=== PATIENT | female | born 1960 | race Caucasian/White ===

== ENCOUNTER 2025-01-31 23:56 | Emergency (ER) | payer OTHER, SELFPAY ==
[~2025-01-31] VITALS: Ht 162.6 cm; Wt 91.0 kg
--- NOTE | 2025-02-01 00:15 | ECG ---
[facility] Test Date: 2025-02-01 Test Time: 00:02:03 Pat Name: NANCY ALVAREZ Department: ED Room: Gender: F Diabetologist: trina : 1960 Requested By: EMERGENCY EMERGENCY Order Number: [id number] Reading MD: Zohaib Ventura Measurements Intervals [place] Rate: 90 P: 53 [place]: 161 QRS: 37 QRSD: 106 T: -23 QT: 372 QTc: 455 Interpretive Statements Sinus rhythm Probable left atrial enlargement Borderline T abnormalities, inferior leads Electronically Signed On 02-01-2025 18:25:48 PDT by Zohaib Ventura Please click the below link to view image of tracing.
--- NOTE | 2025-02-01 04:11 | DVH ---
CLINICAL INDICATION: pain TECHNIQUE: XY R SHOULDER 2+ VIEW XRAY Comparison: None FINDINGS/IMPRESSION: : There is no evidence of acute fracture or dislocation. Mild glenohumeral joint space narrowing and marginal osteophytosis and mild to moderate hypertrophic acromioclavicular arthropathy. Calcific density superior laterally adjacent to the humeral head consistent with sequelae of calcific tendinopathy. Soft tissues are unremarkable.
[2025-02-01] MEDS ORDERED: METH-1181 PO (05:06)
[2025-02-01] MEDS ORDERED: METH4PAK PO (05:06)
--- NOTE | 2025-02-01 05:06 | ED.PDOC ---
Back pain HPI HPI Comments PT PRESENTS TO ED FOR CC OF R SHOULDER PAIN X 3 WEEKS. PT REPORTS TENDERNESS TO R ANTERIOR SHOULDER AND RIGHT UPPER CHEST WALL. Denies difficulty breathing, shortness of breath, dizziness, substernal chest pain, nausea, vomiting, numbness or weakness. Chief Complaint: Upper Extremity Time Seen by MD: 00:28 Reviewed Notes: Nurses Notes, Medications, Allergies Allergies: Coded Allergies: NO KNOWN ALLERGIES (Unverified , 02/01/25) Home Meds Active Scripts Methocarbamol (Methocarbamol) 500 Mg Tab, 500 MG PO BID PRN for 5 Days, #10 TAB Prov:ROSA JORGENSEN SITE RELIABILITY ENGINEER 02/01/25 Methylprednisolone (Medrol Dosepak) 4 Mg Les, 4 MG PO UD for 6 Days, #21 TAB UAD Prov:ROSA JORGENSEN SITE RELIABILITY ENGINEER 02/01/25 Information Source: Patient Mode of Arrival: EMS Past Medical History PAST MEDICAL HISTORY: Denies Surgical History: Denies all surgeries LEAD RIDER History: No Pertinent LEAD RIDER History Family History Family History: Reviewed,noncontributory to illness Social History Smoker: Non-Smoker Alcohol: Denies ETOH Use Drugs: Denies Drug Use All Other Systems: Reviewed and Negative (see hpi) Physical Exam General Appearance: No Apparent Distress, Normal HEENT: Pharynx Normal Neck: Full Range of Motion, Non-Tender Respiratory: Chest Non-Tender, Lungs Clear, No Respiratory Distress, Normal Breath Sounds Cardiovascular: No Edema, No JVD, No Murmur, No Gallop, Normal Peripheral Pulses, Regular Rate/Rhythm Breast Exam: Deferred Gastrointestinal: No Organomegaly, Non Tender, No Pulsatile Mass, Normal Bowel Sounds, Soft Genitalia: Deferred Pelvic: Deferred Rectal: Deferred Extremities: Normal range of motion, No pedal edema Musculoskeletal : Location: Right Extremity Location: Shoulder (Moderate tenderness palpated over anterior shoulder. Strength sensory motion intact positive radial pulse) Apperance: Normal Neurologic: Alert, No Motor Deficits, Normal Affect, Normal Mood, No Sensory Deficits Cerebellar Function: Normal Reflexes: Normal Skin: Dry, Normal Color, Warm Lymphatic: No Adenopathy Was a procedure done? Was a procedure done?: No Back Pain Differential Dx Differential Diagnosis: Fracture, Musculoskeletal Pain, Strain X-Ray, Labs, Meds, VS Vital Signs Date Time Temp Pulse Resp B/P (MAP) Pulse Ox O2 Delivery O2 Flow Rate FiO2 02/01/25 05:19 77 16 98 Room Air 02/01/25 05:19 97.5 77 16 123/69 (87) 98 97.5 02/01/25 00:02 90 01/31/25 23:56 98.8 90 20 136/84 100 98.8 X-Ray, Labs, Meds, VS Comment Right shoulder x-ray FINDINGS/IMPRESSION: : There is no evidence of acute fracture or dislocation. Mild glenohumeral joint space narrowing and marginal osteophytosis and mild to moderate hypertrophic acromioclavicular arthropathy. Calcific density superior laterally adjacent to the humeral head consistent with sequelae of calcific tendinopathy. Soft tissues are unremarkable. EKG results reviewed no noted ectopy or ST elevation. Patient given [place] 5 mg p.o. and Toradol 60 mg IM reports improvement in pain and function requesting discharge at this time. Script trial of Medrol Dosepak and muscle relaxer. Advised take medication as prescribed side effects discussed. ER return precautions given. Follow up with your PCP in 2-3 days as necessary if symptoms persist consider MRI physical therapy patient indicates understanding agrees with discharge plan of care. Time of 1ST Reevaluation: 00:45 Reevaluation 1ST: Unchanged Reevaluation 2ND: Improved Patient Education/Counseling: Diagnosis, Treatment, Prognosis, Need For Follow Up Family Education/Counseling: No Family Present SEPSIS Sepsis Screen Date sepsis recognized/suspect: Feb 01, 2025 Time Sepsis recognized/suspect: 2355 Recent Procedure: No On Antibiotic Therapy: No Respiratory Rate >20: No Heart Rate >90: No Temp<36 C (96.8 F) or >38.3 C: No SBP <90 or MAP <65 mmHG: No New Acute Mental Status Change: No Is the patient on CPAP, BIPAP,: No Physician Orders Electrocardigram (02/01/25 00:07) R Shoulder 2+ View Xray (02/01/25 01:38) Vital Signs Date Time Temp Pulse Resp B/P (MAP) Pulse Ox O2 Delivery O2 Flow Rate FiO2 02/01/25 05:19 77 16 98 Room Air 02/01/25 05:19 97.5 77 16 123/69 (87) 98 97.5 02/01/25 00:02 90 01/31/25 23:56 98.8 90 20 136/84 100 98.8 Departure 1 Departure Time of Disposition: 05:04 Impression: Primary Impression: Calcifying tendinitis of shoulder Qualified Codes: M75.31 - Calcific tendinitis of right shoulder Disposition: 01 HOME / SELF CARE / HOMELESS Condition: Stable e-Prescriptions Methocarbamol (Methocarbamol) 500 Mg Tab 500 MG PO BID PRN for 5 Days, #10 TAB Prov: ROSA JORGENSEN 02/01/25 Methylprednisolone (Medrol Dosepak) 4 Mg Les 4 MG PO UD for 6 Days, #21 TAB UAD Prov: ROSA JORGENSEN 02/01/25 Discharged With: Self Critical Care Note Critical Care Time?: No Stability Stability form required: No ROSA JORGENSEN Feb 01, 2025 05:06
[2025-02-01 05:19] VITALS: BP 123/69; PULSE 77; RESP 16; TEMP 97.5; O2SAT 98
[2025-02-01] MEDS: KETOROLAC TROMETH 60MG/2ML VIAL IM ONE (05:19)
[2025-02-01] MEDS: HYDROcodone-ACET 5/325MG TAB PO ONE (05:19)
== END 2025-02-01 05:30 | disposition home or self-care (01) ==
LOC: ER 23:56 → EDBD 23:56 → ER 02-01 05:27
DX: M75.31 Calcific tendinitis of right shoulder (principal); Z79.899 Other long term (current) drug therapy
CPT/HCPCS: 73030; 93005; 96372; 99283; J1885